=== PATIENT | male | born 1975 | race Caucasian/White ===

== ENCOUNTER 2016-11-05 09:45 | Emergency (ER) | payer SELFPAY | END 2016-11-05 10:30 | disposition home or self-care (01) | LOC: ED 09:45 | DX: H10.231 Serous conjunctivitis, except viral, right eye (principal) | CPT/HCPCS: 99283 ==

== ENCOUNTER 2017-03-29 07:19 | Emergency (ER) | payer OTHER ==
[~2017-03-29] VITALS: Ht 167.6 cm; Wt 108.0 kg
[2017-03-29 07:53] VITALS: BP 148/106
[2017-03-29] MEDS ORDERED: MAALOX/HYOSCYAMINE/LIDOCAINE 45 ML BTL ONE (07:58)
[2017-03-29] MEDS ORDERED: MAALOX/HYOSCYAMINE/LIDOCAINE 45 ML BTL PO ONE (08:00)
[2017-03-29 08:30] LABS: HEMATOCRIT 46.7 % (39.2-51.8); HEMOGLOBIN 15.7 g/dL (13.7-18.0); WHITE BLOOD COUNT 7.3 x10^3/uL (3.4-10)
[2017-03-29 08:37] LABS: ASPARTATE AMINO TRANSFERASE 143 U/L (15-37); BLOOD UREA NITROGEN 8 mg/dL (7-18)
== END 2017-03-30 09:36 | disposition home or self-care (01) ==
LOC: ED 07:40
DX: K29.20 Alcoholic gastritis without bleeding (principal); I10 Essential (primary) hypertension
CPT/HCPCS: 36415; 80053; 83690; 85025; 93005; 99285

== ENCOUNTER 2018-02-25 13:28 | Emergency (ER) | payer SELFPAY ==
[~2018-02-25] VITALS: Ht 167.6 cm; Wt 95.0 kg
[2018-02-25 13:41] VITALS: BP 143/101
[2018-02-25] MEDS ORDERED: PROPARACAINE OPHTH 0.5%, 15ML ONE (14:00)
[2018-02-25] MEDS ORDERED: FLUORESCEIN OPHTHALMIC 1 MG STRIP EACHEYE ONE (14:00)
[2018-02-25] MEDS ORDERED: PROPARACAINE OPHTH 0.5%, 15ML EACHEYE ONE (14:00)
== END 2018-02-25 15:40 | disposition home or self-care (01) ==
LOC: ED 15:25
DX: T15.01XA Foreign body in cornea, right eye, initial encounter (principal); X58.XXXA Exposure to other specified factors, initial encounter
CPT/HCPCS: 99283

== ENCOUNTER 2019-04-15 06:30 | Inpatient (IN) | payer OTHER ==
[~2019-04-15] VITALS: Ht 172.7 cm; Wt 90.7 kg
[2019-04-15] MEDS ORDERED: LORazepam 2 MG/ML, 1ML ONE (06:56)
[2019-04-15] MEDS ORDERED: NALOXONE 0.4 MG/ML, 1ML ONE (06:56)
--- NOTE | 2019-04-15 06:57 | NUR ---
PT. MOVED TO TRAUMA 3 AND ALL MONITORS PLACED. SEZIURE PRECAUTIONS IN PLACE.
--- NOTE | 2019-04-15 06:59 | NUR ---
PER DR. MICHAEL ADMIN NARCAN, IF NO CHANGE IN CONDITION THEN ADMIN ATIVAN. NO CHANGE AFTER NARCAN. RAINA SMITH GAVE REPORT TO RAINA ROCHA TO ASSUME CARE AT THIS TIME.
[2019-04-15 07:00] LABS: BASOPHILS # (AUTO) 0.08 x10^3/uL (0-0.1); BASOPHILS % (AUTO) 1 % (0-1); EOSINOPHILS # (AUTO) 0.01 x10^3/uL (0-0.4); EOSINOPHILS % (AUTO) 0 % (1-7); LYMPHOCYTES # (AUTO) 0.51 x10^3/uL (1-3.4); LYMPHOCYTES % (AUTO) 5 % (22-44); MD NO; MEAN CORPUSCULAR HEMOGLOBIN 31.2 pg (27.5-34.5); MEAN CORPUSCULAR HGB CONC 32.7 g/dL (33.2-36.2); MEAN CORPUSCULAR VOLUME 95.5 fL (81-97); MEAN PLATELET VOLUME 6.8 fL (7.4-10.4); MONOCYTES # (AUTO) 0.56 x10^3/uL (0.2-0.8); MONOCYTES % (AUTO) 6 % (2-9); NEUTROPHILS # (AUTO) 9.01 x10^3/uL (1.8-6.8); NEUTROPHILS % (AUTO) 89 % (42-75); PLATELET COUNT 218 x10^3/uL (130-400); RED BLOOD COUNT 4.24 x10^6/uL (4.38-5.82)
[2019-04-15] MEDS ORDERED: NALOXONE 0.4 MG/ML, 1ML IVPush PRN (07:00)
[2019-04-15] MEDS ORDERED: LORazepam 2 MG/ML, 1ML IVPush ONE (07:00)
--- NOTE | 2019-04-15 07:05 | NUR ---
REPORT RECEIVED, CARE ASSUMED. PT NON VERBAL. CHAMPION. NOT FULLY FOLLOWING COMMANDS, IE: SQUEEZE MY HANDS, PUSH WITH YOUR FEET. RN PLACED CHIOMA ARMS UP FOR PT, PT HELD IN AIR, NO DRIFT NOTED. PT WITH BLOOD AROUND LIPS, ST PER MONITOR. SEIZURE PADS IN PLACE. PT MEDICATED BY NIGHT RN ORDERED. PTS MOTHER AT BEDSIDE. WAITING FOR TEST RESULTS.
[2019-04-15 07:10] LABS: ALBUMIN 3.4 g/dL (3.4-5.0); ANION GAP 15 mmol/L (5-15); CALCIUM 7.8 mg/dL (8.5-10.1); CHLORIDE 106 mmol/L (98-107)
--- NOTE | 2019-04-15 07:11 | NUR ---
FULLY MONITORED: SVT, ERP AT BEDSIDE.
[2019-04-15 07:13] LABS: ALANINE AMINOTRANSFERASE 44 U/L (12-78); ALKALINE PHOSPHATASE 94 U/L (45-117); BILIRUBIN,TOTAL 0.4 mg/dL (0.2-1.0); TOTAL PROTEIN 8.2 g/dL (6.4-8.2)
--- NOTE | 2019-04-15 07:13 | NUR ---
SUCTION SET UP. SEIZURE PADS ON BED, AND SEIZURE PRECAUTIONS IN PLACE.
--- NOTE | 2019-04-15 07:13 | NUR ---
DR MICHAEL AT BEDSIDE.
[2019-04-15 07:14] LABS: SALICYLATE LEVEL < 1.7 mg/dL (2.8-20.0)
--- NOTE | 2019-04-15 07:26 | NUR ---
GILAG COMPLETED. PT TO CT VIA JASMYN
--- NOTE | 2019-04-15 07:33 | NUR ---
PT RETURN TO ROOM.
--- NOTE | 2019-04-15 07:36 | NUR ---
PT CHAMPION, PT SPEAKING TO MOTHER. PT FOLLOWING SOME COMANDS, IE: LIFT YOUR ARMS UP, STICK YOU TONGUE OUT. PT TREMULOUS. ST PER MONITOR. WAITING FOR TEST RESULTS.
--- NOTE | 2019-04-15 07:58 | NUR ---
DR MICHAEL AT BEDSIDE, SPEAKING WITH PTS MOTHER AND SISTER. PT CONT ST PER MONITOR. AUTO BP AND PULSE OX IN PLACE.
--- NOTE | 2019-04-15 08:26 | NUR ---
PT CONT TO CHAMPION, MOVES SELF ON GURNEY. SPEAKING AT TIMES, DIFICULT TO UNDERSTAND. MIMICS DIRECTION, IE: RAISE YOUR ARMS, STICK OUT YOUR HERRERA. CONT ST PER MONITO, AUTTO BP AND PULSE OX IN PLACE. FAMILY AT BEDSIDE. AWARE OF POC. WAITING FOR ADMIT ORDERS.
[2019-04-15 08:29] LABS: INTERNATIONAL NORMALIZED RATIO 0.97 (0.93-1.1); PROTHROMBIN TIME 10.2 Seconds (9.6-11.5)
[2019-04-15] MEDS ORDERED: DILTIAZEM 5 MG/ML, 5ML ONE (08:34)
--- NOTE | 2019-04-15 08:41 | NUR ---
DISCUSSED PT BP WITH DR. MICHAEL, ORDER RECEIVED. PT MEDICATED ORDERED. SUMAN REQUESTED FROM PHARMACY. FAMILY UPDATED ON POC. CONT TO MONITOR.
[2019-04-15] MEDS ORDERED: DILTIAZEM 5 MG/ML, 5ML IVPush ONE (09:00)
[2019-04-15] MEDS ORDERED: LEVETIRACETAM 500 MG in SODIUM CHLORIDE 0.9% 100 ML IV ONE (09:00)
--- NOTE | 2019-04-15 09:24 | NUR ---
PT LESS RESTLESS AFTER URINATING. PUPILS EQUAL BRISK 4MM, FOLLOWING COMMAND OF SQUEEZE MY FINGERS, HOLD YOUR ARMS OUT, PUSH DOWN WITH YOUR FEET. NO FOLLOWING STICK OUT YOUR TONGUE OR PULL YOUR TOES UP. PT CONT TO BE DIFFICULT TO UNDERSTAND. PICKS AT SHEET, MONITORING EQUIPMENT AT TIMES. ST PER MONITOR, AUTO BP AND PULSE OX IN PLACE. KEPPRA INFUSING WITHOUT REDNESS/SWELLING. FAMILY AT BEDSIDE. AWAITING FURTHER DISPOSITION.
[2019-04-15] MEDS ORDERED: ACETAMINOPHEN 650 MG SUPP ONE (09:51)
[2019-04-15] MEDS ORDERED: ACETAMINOPHEN 650 MG SUPP PR STA (09:51)
[2019-04-15 09:57] LABS: AMPHETAMINE SCREEN, URINE Negative (Negative); BARBITURATE SCREEN, URINE Negative (Negative); BENZODIAZEPINE SCREEN, URINE Positive (Negative); CANNABINOID SCREEN, URINE Negative (Negative); COCAINE SCREEN, URINE Negative (Negative); METHADONE SCREEN, URINE Negative (Negative); OPIATE SCREEN, URINE Negative (Negative)
--- NOTE | 2019-04-15 10:07 | NUR ---
ENERGY AND CONSERVATION TECHNICIAN AT BEDSIDE TO DRAW LABS. REPORT TO BASIA PARIS. POC DISCUSSED.
--- NOTE | 2019-04-15 10:15 | NUR ---
BLOOD CULTURES X2 AND LACTIC ACID DRAWN.
[2019-04-15] MEDS ORDERED: ACETAMINOPHEN 650 MG SUPP PR ONE (10:30)
[2019-04-15] MEDS ORDERED: ZIPRASIDONE 20 MG INJ IM ONE ×2 (11:42→12:00)
[2019-04-15] MEDS ORDERED: ENALAPRILAT 1.25 MG/ML, 2ML IVPush PRN (12:00)
[2019-04-15] MEDS ORDERED: ONDANSETRON 2MG/ML, 2ML IVPush PRN (12:00)
[2019-04-15] MEDS ORDERED: PHENOBARBITAL SODIUM 690 MG in SODIUM CHLORIDE 0.9% 50 ML IV ONE (12:00)
[2019-04-15] MEDS ORDERED: DEXMEDETOMIDINE 200 MCG in SODIUM CHLORIDE 0.9% 48 ML IV PRN (12:00)
[2019-04-15] MEDS ORDERED: LABETALOL 5 MG/ML SYR. (IV ONLY) IVPush PRN (12:00)
[2019-04-15] MEDS ORDERED: ACETAMINOPHEN 325 MG TABLET PO PRN (12:00)
[2019-04-15] MEDS ORDERED: ONDANSETRON ODT 4 MG PO PRN (12:00)
[2019-04-15] MEDS ORDERED: BISACODYL 10 MG SUPP PR PRN (12:00)
[2019-04-15] MEDS ORDERED: POLYETHYLENE GLYCOL 17 GM PACKET PO PRN (12:00)
[2019-04-15] MEDS: SODIUM CHLORIDE 0.9% 1,000 ML IV SCH ×2 (12:28→21:57)
[2019-04-15] MEDS ORDERED: SODIUM CHLORIDE 0.9% 1,000ML IVBOLUS ONE (12:30)
[2019-04-15] MEDS: AMPICILLIN/SULBACTAM 3 GM in SODIUM CHLORIDE 0.9% 100 ML IV SCH ×3 (12:50→23:07)
[2019-04-15] MEDS: POTASSIUM CHLORIDE 20 MEQ, MAGNESIUM SULFATE 1 GM, THIAMINE 200 MG, FOLIC ACID 1 MG, MV... IV SCH (12:58)
[2019-04-15 13:37] VITALS: BP 146/88
[2019-04-15 13:39] LABS: MICROSCOPIC NOT IND
[2019-04-15 13:44] VITALS: BP 137/88
[2019-04-15 13:46] LABS: CULTURE INDICATED? NO
[2019-04-15] MEDS: DEXMEDETOMIDINE 1,000 MCG in SODIUM CHLORIDE 0.9% 240 ML IV PRN (14:01)
[2019-04-15] MEDS ORDERED: SODIUM CHLORIDE 0.9% IV ONE (15:00)
[2019-04-15] MEDS ORDERED: PHENOBARBITAL SODIUM IV ONE (15:00)
[2019-04-15] MEDS: DEXAMETHASONE 4 MG/ML, 1ML IVPush SCH ×2 (17:28→23:07)
[2019-04-15] MEDS: LEVETIRACETAM 500 MG in SODIUM CHLORIDE 0.9% 100 ML IV SCH (20:53)
[2019-04-15] MEDS: PHENOBARBITAL SODIUM 65 MG/ML, 1ML IM SCH (21:57)
[2019-04-16 04:00] VITALS: BP 117/73
[2019-04-16] MEDS ORDERED: OMNIPAQUE 350 MG/ML, 100ML BOTTLE ONE (04:32)
[2019-04-16] MEDS: DEXMEDETOMIDINE 1,000 MCG in SODIUM CHLORIDE 0.9% 240 ML IV PRN (05:09)
[2019-04-16] MEDS: DEXAMETHASONE 4 MG/ML, 1ML IVPush SCH ×4 (05:09→23:33)
[2019-04-16] MEDS: SODIUM CHLORIDE 0.9% 1,000 ML IV SCH (05:10)
[2019-04-16] MEDS: AMPICILLIN/SULBACTAM 3 GM in SODIUM CHLORIDE 0.9% 100 ML IV SCH ×3 (06:04→18:34)
[2019-04-16 06:43] LABS: BASOPHILS # (AUTO) 0.01 x10^3/uL (0-0.1); BASOPHILS % (AUTO) 0 % (0-1); EOSINOPHILS % (AUTO) 0 % (1-7); LYMPHOCYTES # (AUTO) 0.39 x10^3/uL (1-3.4); LYMPHOCYTES % (AUTO) 4 % (22-44); MD NO; MEAN CORPUSCULAR HEMOGLOBIN 31.7 pg (27.5-34.5); MEAN CORPUSCULAR HGB CONC 32.8 g/dL (33.2-36.2); MEAN CORPUSCULAR VOLUME 96.8 fL (81-97); MEAN PLATELET VOLUME 7.7 fL (7.4-10.4); MONOCYTES # (AUTO) 0.45 x10^3/uL (0.2-0.8); MONOCYTES % (AUTO) 4 % (2-9); NEUTROPHILS # (AUTO) 9.52 x10^3/uL (1.8-6.8); NEUTROPHILS % (AUTO) 92 % (42-75); PLATELET COUNT 178 x10^3/uL (130-400); RED BLOOD COUNT 4.08 x10^6/uL (4.38-5.82); RED CELL DISTRIBUTION WIDTH 14.2 % (9.4-14.8)
[2019-04-16 06:57] LABS: CALCIUM 7.6 mg/dL (8.5-10.1); CHLORIDE 104 mmol/L (98-107)
[2019-04-16 07:03] LABS: ALANINE AMINOTRANSFERASE 35 U/L (12-78); ALBUMIN 2.9 g/dL (3.4-5.0); ALKALINE PHOSPHATASE 72 U/L (45-117); ANION GAP 8 mmol/L (5-15); BILIRUBIN,TOTAL 0.8 mg/dL (0.2-1.0); TOTAL PROTEIN 7.6 g/dL (6.4-8.2)
[2019-04-16] MEDS: LEVETIRACETAM 500 MG in SODIUM CHLORIDE 0.9% 100 ML IV SCH ×2 (08:45→22:29)
[2019-04-16] MEDS: PHENOBARBITAL SODIUM 65 MG/ML, 1ML IM SCH (08:46)
[2019-04-16] MEDS ORDERED: SENNA/DOCUSATE TABLET PO SCH (09:00)
[2019-04-16] MEDS: POTASSIUM CHLORIDE 20 MEQ, MAGNESIUM SULFATE 1 GM, THIAMINE 200 MG, FOLIC ACID 1 MG, MV... IV SCH (14:03)
[2019-04-16 18:12] VITALS: BP 149/93
[2019-04-16 19:29] VITALS: BP 137/86
[2019-04-16] MEDS: PHENOBARBITAL 20 MG/5 ML ORAL SOL PO SCH (22:32)
[2019-04-17] VITALS (9 sets, daily range): BP systolic 129–162; BP diastolic 78–111
[2019-04-17] MEDS: AMPICILLIN/SULBACTAM 3 GM in SODIUM CHLORIDE 0.9% 100 ML IV SCH ×5 (00:29→23:53)
[2019-04-17] MEDS: DEXAMETHASONE 4 MG/ML, 1ML IVPush SCH ×4 (05:45→23:53)
[2019-04-17] MEDS ORDERED: LORazepam 0.5MG TABLET PO PRN (07:30)
[2019-04-17] MEDS ORDERED: LORazepam 2 MG/ML, 1ML IV PRN ×5 (07:30)
[2019-04-17] MEDS ORDERED: LORazepam 1MG TABLET PO PRN ×4 (07:30)
[2019-04-17] MEDS: FOLIC ACID 1 MG TABLET PO SCH ×2 (07:51→09:00)
[2019-04-17] MEDS: THIAMINE 100 MG/ML, 2ML IM SCH ×2 (07:52→09:00)
[2019-04-17] MEDS: LEVETIRACETAM 500 MG in SODIUM CHLORIDE 0.9% 100 ML IV SCH ×2 (07:53→21:13)
[2019-04-17] MEDS: PHENOBARBITAL 20 MG/5 ML ORAL SOL PO SCH (11:04)
[2019-04-17] MEDS: CARVEDILOL 12.5 MG TABLET PO SCH ×2 (11:05→17:26)
[2019-04-17] MEDS: AMLODIPINE 5 MG TABLET PO SCH ×2 (11:05→21:13)
[2019-04-17] MEDS: LISINOPRIL 20 MG TABLET PO SCH (13:42)
[2019-04-17] MEDS: POTASSIUM CHLORIDE 20 MEQ, MAGNESIUM SULFATE 1 GM, THIAMINE 200 MG, FOLIC ACID 1 MG, MV... IV SCH (13:42)
[2019-04-17] MEDS ORDERED: LABETALOL 5 MG/ML SYR. (IV ONLY) IVPush PRN (14:00)
[2019-04-17] MEDS ORDERED: CARVEDILOL 12.5 MG TABLET PO SCH (18:00)
[2019-04-18] VITALS (9 sets, daily range): BP systolic 125–148; BP diastolic 72–98
[2019-04-18 04:57] LABS: BASOPHILS # (AUTO) 0.01 x10^3/uL (0-0.1); BASOPHILS % (AUTO) 0 % (0-1); EOSINOPHILS # (AUTO) 0.01 x10^3/uL (0-0.4); EOSINOPHILS % (AUTO) 0 % (1-7); LYMPHOCYTES # (AUTO) 0.62 x10^3/uL (1-3.4); LYMPHOCYTES % (AUTO) 5 % (22-44); MD NO; MEAN CORPUSCULAR HEMOGLOBIN 31.6 pg (27.5-34.5); MEAN CORPUSCULAR HGB CONC 32.6 g/dL (33.2-36.2); MEAN CORPUSCULAR VOLUME 96.9 fL (81-97); MEAN PLATELET VOLUME 8.1 fL (7.4-10.4); MONOCYTES # (AUTO) 1.14 x10^3/uL (0.2-0.8); MONOCYTES % (AUTO) 9 % (2-9); NEUTROPHILS % (AUTO) 86 % (42-75); PLATELET COUNT 255 x10^3/uL (130-400); RED BLOOD COUNT 4.17 x10^6/uL (4.38-5.82)
[2019-04-18 05:01] LABS: CHLORIDE 106 mmol/L (98-107)
[2019-04-18 05:12] LABS: ALANINE AMINOTRANSFERASE 35 U/L (12-78); ALBUMIN 2.8 g/dL (3.4-5.0); ALKALINE PHOSPHATASE 65 U/L (45-117); ANION GAP 6 mmol/L (5-15); BILIRUBIN,TOTAL 0.6 mg/dL (0.2-1.0); CREATININE 0.49 mg/dL (0.7-1.3); TOTAL PROTEIN 7.7 g/dL (6.4-8.2)
[2019-04-18] MEDS: AMPICILLIN/SULBACTAM 3 GM in SODIUM CHLORIDE 0.9% 100 ML IV SCH (06:19)
[2019-04-18] MEDS: DEXAMETHASONE 4 MG/ML, 1ML IVPush SCH ×2 (06:19→17:19)
[2019-04-18] MEDS: CARVEDILOL 12.5 MG TABLET PO SCH ×2 (06:19→17:20)
[2019-04-18] MEDS: LEVETIRACETAM 500 MG in SODIUM CHLORIDE 0.9% 100 ML IV SCH ×2 (07:54→20:15)
[2019-04-18] MEDS: FOLIC ACID 1 MG TABLET PO SCH (07:54)
[2019-04-18] MEDS: AMLODIPINE 5 MG TABLET PO SCH ×2 (07:55→20:15)
[2019-04-18] MEDS: LISINOPRIL 20 MG TABLET PO SCH (07:55)
[2019-04-18] MEDS: THIAMINE 100MG TABLET PO SCH (07:55)
[2019-04-18] MEDS ORDERED: DEXAMETHASONE 4 MG/ML, 1ML IVPush SCH (12:00)
[2019-04-18] MEDS: POTASSIUM CHLORIDE 20 MEQ, MAGNESIUM SULFATE 1 GM, THIAMINE 200 MG, FOLIC ACID 1 MG, MV... IV SCH (13:37)
[2019-04-18] MEDS ORDERED: FOLI-17 PO (16:16)
[2019-04-18] MEDS ORDERED: LISI-170 PO (16:16)
[2019-04-18] MEDS ORDERED: THIA100T67 PO (16:16)
[2019-04-18] MEDS ORDERED: CARV12.52 PO (16:16)
[2019-04-18] MEDS ORDERED: OMEP-110 PO (16:16)
[2019-04-18] MEDS ORDERED: AMLO-150 PO (16:16)
[2019-04-18] MEDS ORDERED: LEVE500T53 PO (16:17)
[2019-04-18] MEDS ORDERED: AMOX1TAB12 PO (16:17)
[2019-04-18] MEDS ORDERED: METH4TAB2 PO (16:19)
[2019-04-18] MEDS: AMOXICILLIN/CLAV 875-125MG TABLET PO SCH (20:15)
[2019-04-18] MEDS: PHENOBARBITAL 20 MG/5 ML ORAL SOL PO SCH (22:11)
[2019-04-19 04:00] VITALS: BP 128/80
[2019-04-19] MEDS: DEXAMETHASONE 4 MG/ML, 1ML IVPush SCH (05:14)
[2019-04-19] MEDS: CARVEDILOL 12.5 MG TABLET PO SCH (05:14)
[2019-04-19] MEDS ORDERED: OMEPRAZOLE 20 MG CAPSULE.DR PO SCH (06:00)
[2019-04-19 07:59] VITALS: BP 132/89
[2019-04-19 08:55] VITALS: BP 128/84
[2019-04-19 08:57] VITALS: BP 131/88
[2019-04-19] MEDS: LEVETIRACETAM 500 MG in SODIUM CHLORIDE 0.9% 100 ML IV SCH (09:00)
[2019-04-19] MEDS: THIAMINE 100MG TABLET PO SCH (09:00)
[2019-04-19] MEDS: AMOXICILLIN/CLAV 875-125MG TABLET PO SCH (11:13)
[2019-04-19] MEDS: FOLIC ACID 1 MG TABLET PO SCH (11:13)
[2019-04-19] MEDS: LISINOPRIL 20 MG TABLET PO SCH (11:13)
[2019-04-19] MEDS: AMLODIPINE 5 MG TABLET PO SCH (11:13)
[2019-04-19] MEDS: PHENOBARBITAL 20 MG/5 ML ORAL SOL PO SCH (11:18)
[2019-04-19] MEDS ORDERED: FLU VAC QS 19-20(4YR UP)CEL/PF 0.5 ML IM-VACC ONE (11:30)
[2019-04-20] MEDS ORDERED: PHENOBARBITAL 20 MG/5 ML ORAL SOL PO SCH (22:00)
[2019-04-21] MEDS ORDERED: PHENOBARBITAL 20 MG/5 ML ORAL SOL PO SCH (22:00)
== END 2019-04-19 13:27 | disposition home or self-care (01) | DRG 85 ==
LOC: ED 06:41 → EDIP 09:20 → CCU 10:45 → 4WST 04-16 18:08
PROVIDERS: ADMIT Internal Medicine; ATTEND Internal Medicine
PROC: 0T9B70Z Drainage of Bladder with Drainage Device, Via Natural or Artificial Opening (ICD-10-PCS; principal; 2019-04-15)
DX: S06.5X0A Traumatic subdural hemorrhage without loss of consciousness, initial encounter (principal); G92 Toxic encephalopathy; J69.0 Pneumonitis due to inhalation of food and vomit; F10.239 Alcohol dependence with withdrawal, unspecified; G40.89 Other seizures; Y90.9 Presence of alcohol in blood, level not specified; I48.91 Unspecified atrial fibrillation; R09.02 Hypoxemia; X58.XXXA Exposure to other specified factors, initial encounter; Y93.89 Activity, other specified; Y92.89 Other specified places as the place of occurrence of the external cause; Y99.8 Other external cause status; Z79.899 Other long term (current) drug therapy
CPT/HCPCS: 36415; 70450; 70496; 71045; 80053; 80307; 81003; 82140; 83605; 83690; 83735; 84100; 85025; 85610; 85730; 87040; 87081; 90674; 93005; 96365; 96375; G0378; J0295; J1100; J1953; J2310; J2560; J3411; J3475; J3480; J3486; Q9967; J2060; J7030; J7050

== ENCOUNTER 2019-05-01 10:54 | Inpatient (IN) | payer MEDICAID, OTHER ==
[~2019-05-01] VITALS: Ht 175.3 cm; Wt 88.8 kg
[~2019-05-01 10:54] MED LIST: AMLO-150 PO; AMOX1TAB12 PO; CARV12.52 PO; FOLI-17 PO; LEVE500T53 PO; LISI-170 PO; METH4TAB2 PO; OMEP-110 PO; THIA100T67 PO
[2019-05-01] MEDS ORDERED: LORazepam 2 MG/ML, 1ML ONE ×2 (10:57→12:46)
[2019-05-01] MEDS ORDERED: SODIUM CHLORIDE 0.9% 1,000ML IVBOLUS ONE (11:00)
[2019-05-01] MEDS ORDERED: LORazepam 2 MG/ML, 1ML IVPush ONE ×2 (11:00→12:30)
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
[2019-05-01] MEDS ORDERED: PLEASE ENTER HEIGHT AND WEIGHT MC SCH (11:30)
[2019-05-01 11:33] LABS: BASOPHILS # (AUTO) 0.07 x10^3/uL (0-0.1); BASOPHILS % (AUTO) 1 % (0-1); EOSINOPHILS # (AUTO) 0.14 x10^3/uL (0-0.4); EOSINOPHILS % (AUTO) 1 % (1-7); LYMPHOCYTES # (AUTO) 1.17 x10^3/uL (1-3.4); LYMPHOCYTES % (AUTO) 11 % (22-44); MD NO; MEAN CORPUSCULAR HEMOGLOBIN 31.9 pg (27.5-34.5); MEAN CORPUSCULAR HGB CONC 32.9 g/dL (33.2-36.2); MEAN PLATELET VOLUME 6.8 fL (7.4-10.4); MONOCYTES % (AUTO) 6 % (2-9); NEUTROPHILS # (AUTO) 8.93 x10^3/uL (1.8-6.8); NEUTROPHILS % (AUTO) 81 % (42-75); PLATELET COUNT 557 x10^3/uL (130-400); RED CELL DISTRIBUTION WIDTH 13.4 % (9.4-14.8)
--- NOTE | 2019-05-01 11:43 | NUR ---
Pt returned from CT in NAD, pt LOC & mental staus improved at this time.
[2019-05-01 11:49] LABS: ANION GAP 16 mmol/L (5-15); CALCIUM 8.5 mg/dL (8.5-10.1); CHLORIDE 104 mmol/L (98-107)
[2019-05-01 11:54] LABS: ALANINE AMINOTRANSFERASE 21 U/L (12-78); ALKALINE PHOSPHATASE 87 U/L (45-117); BILIRUBIN,TOTAL 0.5 mg/dL (0.2-1.0); CREATININE 1.18 mg/dL (0.7-1.3); TOTAL PROTEIN 7.6 g/dL (6.4-8.2)
--- NOTE | 2019-05-01 12:00 | NUR ---
Per MD Law, UDS not required for admit order. Pt is unabel to urinate at this time.
--- NOTE | 2019-05-01 12:33 | NUR ---
consulting neurosurgery at this time.
[2019-05-01] MEDS ORDERED: LEVETIRACETAM 1,000 MG in SODIUM CHLORIDE 0.9% 100 ML IV ONE (13:00)
--- NOTE | 2019-05-01 13:22 | NUR ---
MD Evangelista of neurosurgery has been at bedside to assess pt, awaiting CCU bed for admission
--- NOTE | 2019-05-01 13:51 | NUR ---
Pt's family has departed, emergency contact info accurate in chart. Pt asleep in bed, NAD, awaiting ICU bed. WCTM.
[2019-05-01] MEDS ORDERED: LORazepam 2 MG/ML, 1ML IVPush PRN (15:00)
[2019-05-01] MEDS ORDERED: LABETALOL 5MG/ML, 20ML IVPush PRN (15:00)
[2019-05-01] MEDS ORDERED: ONDANSETRON 2MG/ML, 2ML IVPush PRN (15:00)
[2019-05-01] MEDS ORDERED: LEVETIRACETAM 1,000 MG in SODIUM CHLORIDE 0.9% 100 ML IV SCH (15:00)
[2019-05-01] MEDS ORDERED: THIAMINE 200 MG, MVI ADULT 10 ML, FOLIC ACID 1 MG in D5%-0.9% NACL 1,000 ML IV SCH (15:00)
[2019-05-01] MEDS ORDERED: POLYETHYLENE GLYCOL 17 GM PACKET PO PRN (15:00)
[2019-05-01] MEDS ORDERED: BISACODYL 10 MG SUPP PR PRN (15:00)
[2019-05-01] MEDS ORDERED: ENALAPRILAT 1.25 MG/ML, 2ML IVPush PRN (15:00)
[2019-05-01 15:40] LABS: AMPHETAMINE SCREEN, URINE Positive (Negative); BARBITURATE SCREEN, URINE Positive (Negative); BENZODIAZEPINE SCREEN, URINE Negative (Negative); CANNABINOID SCREEN, URINE Negative (Negative); COCAINE SCREEN, URINE Negative (Negative); METHADONE SCREEN, URINE Negative (Negative); OPIATE SCREEN, URINE Negative (Negative)
[2019-05-02 04:00] VITALS: BP 138/87
[2019-05-02 04:40] LABS: BASOPHILS # (AUTO) 0.29 x10^3/uL (0-0.1); BASOPHILS % (AUTO) 3 % (0-1); EOSINOPHILS # (AUTO) 0.13 x10^3/uL (0-0.4); EOSINOPHILS % (AUTO) 1 % (1-7); LYMPHOCYTES # (AUTO) 1.33 x10^3/uL (1-3.4); LYMPHOCYTES % (AUTO) 13 % (22-44); MD NO; MEAN CORPUSCULAR HEMOGLOBIN 31.8 pg (27.5-34.5); MEAN CORPUSCULAR HGB CONC 33.2 g/dL (33.2-36.2); MEAN CORPUSCULAR VOLUME 95.7 fL (81-97); MONOCYTES # (AUTO) 0.76 x10^3/uL (0.2-0.8); MONOCYTES % (AUTO) 8 % (2-9); NEUTROPHILS # (AUTO) 7.65 x10^3/uL (1.8-6.8); NEUTROPHILS % (AUTO) 75 % (42-75); PLATELET COUNT 468 x10^3/uL (130-400); RED BLOOD COUNT 3.92 x10^6/uL (4.38-5.82); RED CELL DISTRIBUTION WIDTH 13.5 % (9.4-14.8)
[2019-05-02 04:50] LABS: CHLORIDE 105 mmol/L (98-107)
[2019-05-02 04:56] LABS: ALANINE AMINOTRANSFERASE 18 U/L (12-78); ALBUMIN 2.7 g/dL (3.4-5.0); ALKALINE PHOSPHATASE 75 U/L (45-117); ANION GAP 7 mmol/L (5-15); BILIRUBIN,TOTAL 0.7 mg/dL (0.2-1.0); CALCIUM 8.2 mg/dL (8.5-10.1); TOTAL PROTEIN 7.3 g/dL (6.4-8.2)
[2019-05-02] MEDS ORDERED: MAGNESIUM SULFATE PMX 2GM/50ML 50 ML IV ONE (07:00)
[2019-05-02] MEDS: SENNA/DOCUSATE TABLET PO SCH (07:52)
[2019-05-02] MEDS: CHLORDIAZEPOXIDE 25 MG CAPSULE PO SCH ×3 (07:52→20:04)
[2019-05-02] MEDS: LORazepam 2 MG/ML, 1ML IVPush PRN (12:09)
[2019-05-02] MEDS: SODIUM CHLORIDE 1 GM TABLET PO SCH ×3 (12:09→20:04)
[2019-05-02] MEDS ORDERED: THIAMINE 200 MG, MVI ADULT 10 ML, FOLIC ACID 1 MG in D5%-0.9% NACL 1,000 ML IV SCH (15:00)
[2019-05-02] MEDS: LEVETIRACETAM 500 MG TABLET PO SCH (20:04)
[2019-05-03] MEDS: LORazepam 2 MG/ML, 1ML IVPush PRN ×2 (00:06→06:15)
[2019-05-03 04:45] LABS: ANION GAP 6 mmol/L (5-15); CALCIUM 8.1 mg/dL (8.5-10.1); CHLORIDE 107 mmol/L (98-107)
[2019-05-03] MEDS ORDERED: POTASSIUM CHLORIDE 20 MEQ TAB.ER.PRT PO ONE (07:30)
[2019-05-03] MEDS: SODIUM CHLORIDE 1 GM TABLET PO SCH ×3 (09:15→20:54)
[2019-05-03] MEDS: LEVETIRACETAM 500 MG TABLET PO SCH ×2 (09:16→20:53)
[2019-05-03] MEDS: SENNA/DOCUSATE TABLET PO SCH (09:16)
[2019-05-03] MEDS ORDERED: CHLORDIAZEPOXIDE 10 MG CAPSULE ONE (12:09)
[2019-05-03] MEDS ORDERED: CHLORDIAZEPOXIDE 5 MG CAPSULE ONE (12:10)
[2019-05-03] MEDS: THIAMINE 200 MG, MVI ADULT 10 ML, FOLIC ACID 1 MG in D5%-0.9% NACL 1,000 ML IV SCH ×2 (13:24→15:37)
[2019-05-03] MEDS: CHLORDIAZEPOXIDE 10 MG CAPSULE PO SCH ×2 (14:38→20:53)
[2019-05-03] MEDS: CHLORDIAZEPOXIDE 5 MG CAPSULE PO SCH ×2 (15:20→20:53)
[2019-05-03] MEDS: ACETAMINOPHEN 325 MG TABLET PO PRN (20:53)
[2019-05-04] MEDS: ACETAMINOPHEN 325 MG TABLET PO PRN ×2 (04:30→15:28)
[2019-05-04 05:04] LABS: ANION GAP 5 mmol/L (5-15); CALCIUM 8.6 mg/dL (8.5-10.1); CHLORIDE 106 mmol/L (98-107); CREATININE 0.62 mg/dL (0.7-1.3)
[2019-05-04] MEDS: SODIUM CHLORIDE 1 GM TABLET PO SCH ×3 (08:31→20:21)
[2019-05-04] MEDS: CHLORDIAZEPOXIDE 5 MG CAPSULE PO SCH ×3 (08:31→20:22)
[2019-05-04] MEDS: CHLORDIAZEPOXIDE 10 MG CAPSULE PO SCH ×3 (08:31→20:21)
[2019-05-04] MEDS: LEVETIRACETAM 500 MG TABLET PO SCH ×2 (08:31→20:21)
[2019-05-04] MEDS: SENNA/DOCUSATE TABLET PO SCH (08:34)
[2019-05-04] MEDS: OXYcodone IR 5MG TABLET PO PRN ×2 (08:56→14:11)
[2019-05-04] MEDS: THIAMINE 200 MG, MVI ADULT 10 ML, FOLIC ACID 1 MG in D5%-0.9% NACL 1,000 ML IV SCH (11:27)
[2019-05-04 17:05] VITALS: BP 128/96
[2019-05-04 19:54] VITALS: BP 123/78
[2019-05-05 03:45] VITALS: BP 139/90
[2019-05-05] MEDS: OXYcodone IR 5MG TABLET PO PRN ×2 (04:58→09:21)
[2019-05-05 05:55] LABS: ANION GAP 6 mmol/L (5-15); CALCIUM 8.9 mg/dL (8.5-10.1); CHLORIDE 106 mmol/L (98-107)
[2019-05-05 05:56] LABS: CREATININE 0.63 mg/dL (0.7-1.3)
[2019-05-05 07:56] VITALS: BP 122/83
[2019-05-05] MEDS: SENNA/DOCUSATE TABLET PO SCH (08:19)
[2019-05-05] MEDS: CHLORDIAZEPOXIDE 5 MG CAPSULE PO SCH ×3 (08:19→20:18)
[2019-05-05] MEDS: LEVETIRACETAM 500 MG TABLET PO SCH ×2 (08:19→20:18)
[2019-05-05] MEDS: CHLORDIAZEPOXIDE 10 MG CAPSULE PO SCH ×3 (08:19→20:18)
[2019-05-05] MEDS: SODIUM CHLORIDE 1 GM TABLET PO SCH ×3 (09:21→20:18)
[2019-05-05] MEDS: THIAMINE 200 MG, MVI ADULT 10 ML, FOLIC ACID 1 MG in D5%-0.9% NACL 1,000 ML IV SCH (09:22)
[2019-05-05 11:09] VITALS: BP 127/86
[2019-05-05] MEDS: ACETAMINOPHEN 325 MG TABLET PO PRN ×2 (11:28→20:42)
[2019-05-05 14:11] VITALS: BP 108/68
[2019-05-05 18:40] VITALS: BP 132/63
[2019-05-06 00:19] VITALS: BP 116/78
[2019-05-06 07:01] LABS: ANION GAP 6 mmol/L (5-15); CHLORIDE 106 mmol/L (98-107); CREATININE 0.56 mg/dL (0.7-1.3)
[2019-05-06 07:13] VITALS: BP 145/88
[2019-05-06] MEDS: SODIUM CHLORIDE 1 GM TABLET PO SCH ×3 (08:14→20:34)
[2019-05-06] MEDS: LEVETIRACETAM 500 MG TABLET PO SCH ×2 (08:14→20:34)
[2019-05-06] MEDS: CHLORDIAZEPOXIDE 5 MG CAPSULE PO SCH ×3 (08:14→20:34)
[2019-05-06] MEDS: SENNA/DOCUSATE TABLET PO SCH (08:14)
[2019-05-06] MEDS: CHLORDIAZEPOXIDE 10 MG CAPSULE PO SCH ×3 (08:14→20:34)
[2019-05-06] MEDS: THIAMINE 200 MG, MVI ADULT 10 ML, FOLIC ACID 1 MG in D5%-0.9% NACL 1,000 ML IV SCH (11:12)
[2019-05-06 13:00] VITALS: BP 129/84
[2019-05-06 18:52] VITALS: BP 138/85
[2019-05-07 01:36] VITALS: BP 117/78
[2019-05-07 07:00] VITALS: BP 127/84
[2019-05-07] MEDS: CHLORDIAZEPOXIDE 5 MG CAPSULE PO SCH (10:12)
[2019-05-07] MEDS: SODIUM CHLORIDE 1 GM TABLET PO SCH (10:12)
[2019-05-07] MEDS: LEVETIRACETAM 500 MG TABLET PO SCH (10:12)
[2019-05-07] MEDS: CHLORDIAZEPOXIDE 10 MG CAPSULE PO SCH (10:12)
== END 2019-05-07 10:44 | disposition home or self-care (01) | DRG 65 ==
LOC: ED 12:13 → EDIP 12:58 → CCU 14:21 → 5SO 05-04 17:06 → 4WST 05-05 10:39 → DCLOUNGE 05-07 10:18
PROVIDERS: ADMIT Internal Medicine; ATTEND Internal Medicine
DX: I62.01 Nontraumatic acute subdural hemorrhage (principal); E87.1 Hypo-osmolality and hyponatremia; F10.239 Alcohol dependence with withdrawal, unspecified; D64.9 Anemia, unspecified; I62.03 Nontraumatic chronic subdural hemorrhage; D72.828 Other elevated white blood cell count; F15.10 Other stimulant abuse, uncomplicated; I10 Essential (primary) hypertension; R56.9 Unspecified convulsions; Z91.14 Patient's other noncompliance with medication regimen
CPT/HCPCS: 36415; 96361; 96374; 99291; J7042; 70450; 80048; 80053; 80307; 83735; 84100; 85025; 87081; 93005; G0378; J1953; J2405; J3411; J2060; J3475; J7030

== ENCOUNTER 2019-05-23 19:17 | Emergency (ER) | payer MEDICAID ==
[~2019-05-23] VITALS: Ht 167.6 cm; Wt 95.5 kg
[2019-05-23] MEDS ORDERED: LEVE500T8 PO (19:44)
--- NOTE | 2019-05-23 20:10 | NUR ---
PT DOZING IN RT LATERAL POSITION ON BED, C-COLLAR REMAINS IN PLACE, RESP EVEN & UNLABORED.
--- NOTE | 2019-05-23 20:30 | NUR ---
C-COLLAR REMOVED PER DR RIVAS
--- NOTE | 2019-05-23 20:35 | NUR ---
PT VOIDED ONTO FLOOR. DRY LINENS, WARM BLANKET & URINAL PROVIDED TO PT. SIDE RAIL UP X2, CALL LIGHT W/IN REACH.
--- NOTE | 2019-05-23 21:41 | NUR ---
PT LYING QUIETLY ON GURNEY; NOTIFIED OF PENDING DC. PT INDICATES HE'S NOT READY TO GO.
--- NOTE | 2019-05-23 21:55 | NUR ---
AMBULATED PT IN MATA; GAIT UNSTEADY. PT ACCOMPANIED TO ED ROOM 18. PT ENDORSED TO RAINA STOCKTON.
--- NOTE | 2019-05-23 21:57 | NUR ---
Report received and care assumed. Pt to be d/c home when able to walk safely. Attempted to ambulate--pt able to ambulate but is unsteady at this time. Pt moved to rm 18. Pt answering questions appropriately, moves all extremities. No needs expressed. Bed rails up. Call light in reach. Pt agrees to call for assist--aware of fall risk. Will reattempt to ambulate when more sober.
--- NOTE | 2019-05-23 23:10 | NUR ---
Pt sleeping with resp even and unlabored. Repositioning self in bed. VSS. Call light in reach.
--- NOTE | 2019-05-24 00:39 | NUR ---
Pt up to BR with steady gait. Tolerating PO fluids. Pupils ELAINE @ 4. Dedicated Truck Driver equal. Pt complains of mild dizziness--otherwise denies pain, numbness, tingling. Pt is A&O to person, place, and time. Answering questions appropriately. Pt will attempt to call sister and/or parents for ride.
[2019-05-24 00:40] VITALS: BP 116/80
--- NOTE | 2019-05-24 01:00 | NUR ---
Per pt's request, called and spoke with Barbara, pt's sister. She states she is on her way and will take pt to his parent's. Pt continues ambulating with steady gait to d/c desk. Pt will wait in lobby for sister to p/u.
== END 2019-05-24 01:09 | disposition home or self-care (01) ==
LOC: ED 21:47
DX: S00.83XA Contusion of other part of head, initial encounter (principal); F10.220 Alcohol dependence with intoxication, uncomplicated; I10 Essential (primary) hypertension; Y90.0 Blood alcohol level of less than 20 mg/100 ml; W18.30XA Fall on same level, unspecified, initial encounter; Y93.89 Activity, other specified; Y92.811 Bus as the place of occurrence of the external cause; Y99.8 Other external cause status
CPT/HCPCS: 70450; 70486; 72125; 99284

== ENCOUNTER 2019-06-30 08:21 | Emergency (ER) | payer MEDICAID ==
[~2019-06-30] VITALS: Ht 167.6 cm; Wt 90.9 kg
[~2019-06-30 08:21] MED LIST changes: +LEVE500T8 PO
[2019-06-30] MEDS ORDERED: LORazepam 2 MG/ML, 1ML ONE (08:37)
[2019-06-30 08:58] LABS: BASOPHILS # (AUTO) 0.15 x10^3/uL (0-0.1); BASOPHILS % (AUTO) 3 % (0-1); EOSINOPHILS # (AUTO) 0.08 x10^3/uL (0-0.4); EOSINOPHILS % (AUTO) 2 % (1-7); LYMPHOCYTES # (AUTO) 0.68 x10^3/uL (1-3.4); LYMPHOCYTES % (AUTO) 15 % (22-44); MD NO; MEAN CORPUSCULAR HEMOGLOBIN 31.2 pg (27.5-34.5); MEAN CORPUSCULAR HGB CONC 33.5 g/dL (33.2-36.2); MEAN CORPUSCULAR VOLUME 93.2 fL (81-97); MEAN PLATELET VOLUME 7.4 fL (7.4-10.4); MONOCYTES # (AUTO) 0.58 x10^3/uL (0.2-0.8); MONOCYTES % (AUTO) 13 % (2-9); NEUTROPHILS # (AUTO) 3.08 x10^3/uL (1.8-6.8); NEUTROPHILS % (AUTO) 68 % (42-75); PLATELET COUNT 155 x10^3/uL (130-400); RED BLOOD COUNT 4.23 x10^6/uL (4.38-5.82); RED CELL DISTRIBUTION WIDTH 15.4 % (9.4-14.8)
[2019-06-30] MEDS ORDERED: SODIUM CHLORIDE FLUSH 10ML SYR IVF ONE (09:00)
[2019-06-30] MEDS ORDERED: SODIUM CHLORIDE 0.9% 1,000ML IVBOLUS ONE (09:00)
[2019-06-30] MEDS ORDERED: LORazepam 2 MG/ML, 1ML IVPush ONE (09:00)
[2019-06-30 09:10] LABS: ALANINE AMINOTRANSFERASE 177 U/L (12-78); ALBUMIN 3.7 g/dL (3.4-5.0); ANION GAP 13 mmol/L (5-15); CHLORIDE 103 mmol/L (98-107); CREATININE 0.71 mg/dL (0.7-1.3)
[2019-06-30 09:12] LABS: ALKALINE PHOSPHATASE 88 U/L (45-117); BILIRUBIN,TOTAL 0.9 mg/dL (0.2-1.0); TOTAL PROTEIN 8.3 g/dL (6.4-8.2)
[2019-06-30 11:45] VITALS: BP 137/77
== END 2019-06-30 11:48 | disposition home or self-care (01) ==
LOC: ED 10:34
DX: F10.239 Alcohol dependence with withdrawal, unspecified (principal); R45.1 Restlessness and agitation; R51 Headache; I10 Essential (primary) hypertension; Y90.9 Presence of alcohol in blood, level not specified
CPT/HCPCS: 36415; 70450; 71045; 80053; 83690; 85025; 93005; 96361; 96374; 99284; J2060; J7030

== ENCOUNTER 2020-02-04 21:44 | Inpatient (IN) | payer MEDICAID ==
[~2020-02-04] VITALS: Ht 167.6 cm; Wt 94.0 kg
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
[2020-02-04 22:33] LABS: BASOPHILS % (AUTO) 3 % (0-1); EOSINOPHILS # (AUTO) 0.19 x10^3/uL (0-0.4); EOSINOPHILS % (AUTO) 3 % (1-7); LYMPHOCYTES # (AUTO) 2.49 x10^3/uL (1-3.4); LYMPHOCYTES % (AUTO) 38 % (22-44); MD NO; MEAN CORPUSCULAR HEMOGLOBIN 27.9 pg (27.5-34.5); MEAN CORPUSCULAR HGB CONC 32.4 g/dL (33.2-36.2); MEAN CORPUSCULAR VOLUME 86.3 fL (81-97); MEAN PLATELET VOLUME 6.2 fL (7.4-10.4); MONOCYTES # (AUTO) 0.54 x10^3/uL (0.2-0.8); MONOCYTES % (AUTO) 8 % (2-9); NEUTROPHILS # (AUTO) 3.11 x10^3/uL (1.8-6.8); NEUTROPHILS % (AUTO) 48 % (42-75); PLATELET COUNT 351 x10^3/uL (130-400); RED BLOOD COUNT 3.67 x10^6/uL (4.38-5.82); RED CELL DISTRIBUTION WIDTH 15.5 % (9.4-14.8)
[2020-02-04 22:42] LABS: ALBUMIN 3.2 g/dL (3.4-5.0); ANION GAP 8 mmol/L (5-15); CALCIUM 8.2 mg/dL (8.5-10.1); CHLORIDE 108 mmol/L (98-107); CREATININE 0.64 mg/dL (0.7-1.3)
[2020-02-04] MEDS ORDERED: ONDANSETRON 2MG/ML, 2ML ONE (22:50)
[2020-02-04] MEDS ORDERED: ONDANSETRON 2MG/ML, 2ML IVPush ONE (23:00)
--- NOTE | 2020-02-05 00:45 | NUR ---
Harjinder RN: Dr. Soler at bedside for patient evaluation.
[2020-02-05] MEDS ORDERED: NS + 20MEQ KCL 1,000 ML IV SCH (01:39)
[2020-02-05] MEDS ORDERED: LORazepam 1MG TABLET PO PRN ×4 (02:00)
[2020-02-05] MEDS ORDERED: morphine SULFATE 10 MG/ML, 1ML IVPush PRN (02:00)
[2020-02-05] MEDS ORDERED: LORazepam 2 MG/ML, 1ML IV PRN ×5 (02:00)
[2020-02-05] MEDS ORDERED: POTASSIUM CHLORIDE 20 MEQ, MAGNESIUM SULFATE 1 GM, THIAMINE 200 MG, FOLIC ACID 1 MG, MV... IV SCH (02:00)
[2020-02-05] MEDS ORDERED: ACETAMINOPHEN 325 MG TABLET PO PRN (02:00)
[2020-02-05] MEDS ORDERED: LORazepam 2 MG/ML, 1ML ONE (02:11)
--- NOTE | 2020-02-05 02:13 | NUR ---
CIWA 8. 1 mg ativan IV given per order. See eMAR for additional details
--- NOTE | 2020-02-05 02:14 | NUR ---
Report given to Ciarra PARIS
[2020-02-05 03:00] VITALS: BP 124/79
[2020-02-05] MEDS: OMEPRAZOLE 20 MG CAPSULE.DR PO SCH (05:44)
[2020-02-05] MEDS: CARVEDILOL 12.5 MG TABLET PO SCH ×2 (05:44→18:00)
[2020-02-05] MEDS: HYDROcodone/APAP 5/325 TABLET PO PRN (06:45)
[2020-02-05 08:26] VITALS: BP 122/74
[2020-02-05] MEDS: SENNA/DOCUSATE TABLET PO SCH (08:42)
[2020-02-05] MEDS: FOLIC ACID 1 MG TABLET PO SCH (08:42)
[2020-02-05] MEDS: LEVETIRACETAM 500 MG TABLET PO SCH ×2 (08:42→21:04)
[2020-02-05] MEDS: AMLODIPINE 5 MG TABLET PO SCH ×2 (08:42→21:04)
[2020-02-05] MEDS: LISINOPRIL 20 MG TABLET PO SCH (08:42)
[2020-02-05] MEDS: THIAMINE 100MG TABLET PO SCH (08:42)
[2020-02-05 12:02] LABS: ANION GAP 9 mmol/L (5-15); CALCIUM 8.3 mg/dL (8.5-10.1); CHLORIDE 109 mmol/L (98-107); CREATININE 0.47 mg/dL (0.7-1.3)
[2020-02-05 12:10] LABS: BASOPHILS # (AUTO) 0.15 x10^3/uL (0-0.1); BASOPHILS % (AUTO) 2 % (0-1); EOSINOPHILS # (AUTO) 0.05 x10^3/uL (0-0.4); EOSINOPHILS % (AUTO) 1 % (1-7); LYMPHOCYTES # (AUTO) 1.15 x10^3/uL (1-3.4); LYMPHOCYTES % (AUTO) 12 % (22-44); MD NO; MEAN CORPUSCULAR HGB CONC 32.4 g/dL (33.2-36.2); MEAN CORPUSCULAR VOLUME 86.2 fL (81-97); MEAN PLATELET VOLUME 6.8 fL (7.4-10.4); MONOCYTES % (AUTO) 7 % (2-9); NEUTROPHILS # (AUTO) 7.37 x10^3/uL (1.8-6.8); NEUTROPHILS % (AUTO) 78 % (42-75); PLATELET COUNT 335 x10^3/uL (130-400); RED BLOOD COUNT 3.63 x10^6/uL (4.38-5.82); RED CELL DISTRIBUTION WIDTH 15.7 % (9.4-14.8)
[2020-02-05] MEDS ORDERED: BALANCED SALT OPHTH IRRIG SOLN 18ML ONE (13:29)
[2020-02-05] MEDS ORDERED: LIDOCAINE 1%-EPI 1:100K, 20ML ONE (13:29)
[2020-02-05] MEDS ORDERED: CHLORHEXIDINE 15 ML UDC ONE (13:32)
[2020-02-05] MEDS ORDERED: MIDAZOLAM 1 MG/ML, 2ML ONE (15:13)
[2020-02-05] MEDS ORDERED: FENTANYL PF 250 MCG/5ML ONE (15:14)
[2020-02-05] MEDS ORDERED: COCAINE TOPICAL SOLN 4%, 4ML ONE (16:12)
[2020-02-05] MEDS ORDERED: NEOSTIGMINE 1 MG/ML, 10ML ONE (17:01)
[2020-02-05] MEDS ORDERED: PROPOFOL 10 MG/ML, 20ML ONE (17:01)
[2020-02-05] MEDS ORDERED: MEPERIDINE/PF 100 MG/ML ONE (17:01)
[2020-02-05] MEDS ORDERED: ONDANSETRON 2MG/ML, 2ML ONE (17:01)
[2020-02-05] MEDS ORDERED: GLYCOPYRROLATE 0.2MG/1ML, 5ML ONE (17:01)
[2020-02-05] MEDS ORDERED: CEFAZOLIN 1,000 MG ONE (17:01)
[2020-02-05] MEDS ORDERED: ROCURONIUM 10MG/ML,5ML ONE (17:01)
[2020-02-05] MEDS ORDERED: DEXAMETHASONE 4 MG/ML, 1ML ONE (17:01)
[2020-02-05] MEDS ORDERED: SUCCINYLCHOLINE 20 MG/ML, 10ML ONE (17:01)
[2020-02-05 18:56] VITALS: BP 138/83
[2020-02-05 19:40] VITALS: BP 136/88
[2020-02-06 01:15] VITALS: BP 129/88
[2020-02-06 03:16] VITALS: BP 121/75
[2020-02-06 03:39] VITALS: BP 123/84
[2020-02-06 04:14] LABS: ANION GAP 7 mmol/L (5-15); CALCIUM 8.6 mg/dL (8.5-10.1); CHLORIDE 104 mmol/L (98-107); CREATININE 0.55 mg/dL (0.7-1.3)
[2020-02-06 04:33] LABS: BASOPHILS # (AUTO) 0.03 x10^3/uL (0-0.1); BASOPHILS % (AUTO) 0 % (0-1); EOSINOPHILS # (AUTO) 0.06 x10^3/uL (0-0.4); EOSINOPHILS % (AUTO) 0 % (1-7); LYMPHOCYTES # (AUTO) 1.01 x10^3/uL (1-3.4); LYMPHOCYTES % (AUTO) 7 % (22-44); MD NO; MEAN CORPUSCULAR HEMOGLOBIN 28.1 pg (27.5-34.5); MEAN CORPUSCULAR HGB CONC 32.8 g/dL (33.2-36.2); MEAN CORPUSCULAR VOLUME 85.5 fL (81-97); MEAN PLATELET VOLUME 7.1 fL (7.4-10.4); MONOCYTES # (AUTO) 0.91 x10^3/uL (0.2-0.8); MONOCYTES % (AUTO) 6 % (2-9); NEUTROPHILS # (AUTO) 12.55 x10^3/uL (1.8-6.8); NEUTROPHILS % (AUTO) 86 % (42-75); PLATELET COUNT 305 x10^3/uL (130-400); RED BLOOD COUNT 3.69 x10^6/uL (4.38-5.82); RED CELL DISTRIBUTION WIDTH 15.5 % (9.4-14.8)
[2020-02-06] MEDS: CARVEDILOL 12.5 MG TABLET PO SCH ×2 (05:41→18:19)
[2020-02-06] MEDS: OMEPRAZOLE 20 MG CAPSULE.DR PO SCH (05:41)
[2020-02-06 07:34] VITALS: BP 103/73
[2020-02-06] MEDS: AMLODIPINE 5 MG TABLET PO SCH ×2 (09:36→21:35)
[2020-02-06] MEDS: THIAMINE 100MG TABLET PO SCH (09:36)
[2020-02-06] MEDS: FOLIC ACID 1 MG TABLET PO SCH (09:36)
[2020-02-06] MEDS: LORazepam 0.5MG TABLET PO PRN ×2 (09:36→22:45)
[2020-02-06] MEDS: LEVETIRACETAM 500 MG TABLET PO SCH ×2 (09:36→21:35)
[2020-02-06] MEDS: LISINOPRIL 20 MG TABLET PO SCH (09:36)
[2020-02-06] MEDS: SENNA/DOCUSATE TABLET PO SCH (09:36)
[2020-02-06 12:56] VITALS: BP 123/72
[2020-02-06] MEDS: HYDROcodone/APAP 5/325 TABLET PO PRN ×3 (14:23→22:45)
[2020-02-06 20:25] VITALS: BP 116/77
[2020-02-07 03:22] VITALS: BP 122/76
[2020-02-07 05:51] LABS: BASOPHILS # (AUTO) 0.16 x10^3/uL (0-0.1); BASOPHILS % (AUTO) 2 % (0-1); EOSINOPHILS # (AUTO) 0.08 x10^3/uL (0-0.4); EOSINOPHILS % (AUTO) 1 % (1-7); LYMPHOCYTES # (AUTO) 1.86 x10^3/uL (1-3.4); LYMPHOCYTES % (AUTO) 19 % (22-44); MD NO; MEAN CORPUSCULAR HEMOGLOBIN 27.9 pg (27.5-34.5); MEAN CORPUSCULAR HGB CONC 32.3 g/dL (33.2-36.2); MEAN CORPUSCULAR VOLUME 86.3 fL (81-97); MEAN PLATELET VOLUME 7.3 fL (7.4-10.4); MONOCYTES # (AUTO) 0.89 x10^3/uL (0.2-0.8); MONOCYTES % (AUTO) 9 % (2-9); NEUTROPHILS # (AUTO) 7.02 x10^3/uL (1.8-6.8); NEUTROPHILS % (AUTO) 70 % (42-75); PLATELET COUNT 290 x10^3/uL (130-400); RED BLOOD COUNT 3.51 x10^6/uL (4.38-5.82); RED CELL DISTRIBUTION WIDTH 15.6 % (9.4-14.8)
[2020-02-07 05:59] LABS: ANION GAP 6 mmol/L (5-15); CALCIUM 8.7 mg/dL (8.5-10.1); CHLORIDE 106 mmol/L (98-107); CREATININE 0.49 mg/dL (0.7-1.3)
[2020-02-07] MEDS: OMEPRAZOLE 20 MG CAPSULE.DR PO SCH (06:09)
[2020-02-07] MEDS: CARVEDILOL 12.5 MG TABLET PO SCH (06:09)
[2020-02-07] MEDS: HYDROcodone/APAP 5/325 TABLET PO PRN ×2 (06:10→10:35)
[2020-02-07 07:35] VITALS: BP 110/72
[2020-02-07] MEDS: LEVETIRACETAM 500 MG TABLET PO SCH (07:48)
[2020-02-07] MEDS: AMLODIPINE 5 MG TABLET PO SCH (07:48)
[2020-02-07] MEDS: FOLIC ACID 1 MG TABLET PO SCH (07:48)
[2020-02-07] MEDS: LISINOPRIL 20 MG TABLET PO SCH (07:48)
[2020-02-07] MEDS: THIAMINE 100MG TABLET PO SCH (07:49)
[2020-02-07] MEDS: SENNA/DOCUSATE TABLET PO SCH (07:50)
[2020-02-07] MEDS ORDERED: AMOXICILLIN/CLAV 875-125MG TABLET PO SCH (09:00)
[2020-02-07] MEDS ORDERED: AMOX1TAB12 PO (10:22)
[2020-02-07] MEDS ORDERED: HYDR-3237 PO (10:22)
== END 2020-02-07 11:49 | disposition home or self-care (01) | DRG 131 ==
LOC: ED 22:47 → EDIP 02-05 01:46 → 4NE 02-05 02:17 → DCLOUNGE 02-07 11:24
PROVIDERS: ADMIT Family Medicine; ATTEND Family Medicine
PROC: 0NSN04Z Reposition Left Zygomatic Bone with Internal Fixation Device, Open Approach (ICD-10-PCS; principal; 2020-02-05 14:30)
DX: S02.40FA Zygomatic fracture, left side, initial encounter for closed fracture (principal); S02.32XA Fracture of orbital floor, left side, initial encounter for closed fracture; F10.239 Alcohol dependence with withdrawal, unspecified; I10 Essential (primary) hypertension; S02.2XXA Fracture of nasal bones, initial encounter for closed fracture; S02.40DA Maxillary fracture, left side, initial encounter for closed fracture; E87.6 Hypokalemia; D64.9 Anemia, unspecified; F10.220 Alcohol dependence with intoxication, uncomplicated; G40.909 Epilepsy, unspecified, not intractable, without status epilepticus; Z20.828 Contact with and (suspected) exposure to other viral communicable diseases; Y08.89XA Assault by other specified means, initial encounter; Y93.89 Activity, other specified; Y92.89 Other specified places as the place of occurrence of the external cause; Y99.8 Other external cause status
CPT/HCPCS: 36415; 70450; 70486; 80048; 80307; 82040; 83735; 85025; 87635; G0378; J0690; J1100; J2250; J2405; J2704; J2710; J3010; J3411; J3475; J3480; J3490; J0330; J2060; J2175; J2270; J7030

== ENCOUNTER 2020-02-24 14:07 | Emergency (ER) | payer MEDICAID ==
[~2020-02-24] VITALS: Ht 167.6 cm; Wt 91.6 kg
[~2020-02-24 14:07] MED LIST changes: +HYDR-3237 PO
--- NOTE | 2020-02-24 15:25 | NUR ---
MANAGER SCHEDULING: PT TO ROOM FROM LOBBY
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
--- NOTE | 2020-02-24 16:45 | NUR ---
PT TO CT
--- NOTE | 2020-02-24 17:26 | NUR ---
received records from [facility].
[2020-02-24 18:18] VITALS: BP 145/85
--- NOTE | 2020-02-24 18:19 | NUR ---
PT AMBULATED TO BATHROOM. LABS PENDING
[2020-02-24 18:26] LABS: CHLORIDE 106 mmol/L (98-107)
[2020-02-24 18:27] LABS: BASOPHILS # (AUTO) 0.12 x10^3/uL (0-0.1); BASOPHILS % (AUTO) 2 % (0-1); EOSINOPHILS # (AUTO) 0.22 x10^3/uL (0-0.4); EOSINOPHILS % (AUTO) 3 % (1-7); LYMPHOCYTES % (AUTO) 23 % (22-44); MD NO; MEAN CORPUSCULAR HEMOGLOBIN 25.8 pg (27.5-34.5); MEAN CORPUSCULAR HGB CONC 31.4 g/dL (33.2-36.2); MEAN PLATELET VOLUME 6.8 fL (7.4-10.4); MONOCYTES # (AUTO) 0.54 x10^3/uL (0.2-0.8); MONOCYTES % (AUTO) 7 % (2-9); NEUTROPHILS # (AUTO) 5.14 x10^3/uL (1.8-6.8); NEUTROPHILS % (AUTO) 66 % (42-75); PLATELET COUNT 520 x10^3/uL (130-400); RED BLOOD COUNT 3.76 x10^6/uL (4.38-5.82); RED CELL DISTRIBUTION WIDTH 17.1 % (9.4-14.8)
[2020-02-24 18:37] LABS: ANION GAP 8 mmol/L (5-15); CALCIUM 8.7 mg/dL (8.5-10.1)
--- NOTE | 2020-02-24 18:51 | NUR ---
Patient/Caregiver given discharge instructions and they have confirmed that they understand the instructions. Patient ambulatory with steady gait.
== END 2020-02-24 19:19 | disposition home or self-care (01) ==
LOC: ED 17:32
DX: G44.329 Chronic post-traumatic headache, not intractable (principal); D53.9 Nutritional anemia, unspecified; R42 Dizziness and giddiness; I10 Essential (primary) hypertension; R53.1 Weakness; Z76.0 Encounter for issue of repeat prescription
CPT/HCPCS: 36415; 70450; 80048; 85025; 99284

== ENCOUNTER 2021-02-16 04:52 | Emergency (ER) | payer MEDICAID ==
[~2021-02-16] VITALS: Ht 167.6 cm; Wt 82.3 kg
[~2021-02-16 04:52] MED LIST changes: -FOLI-17 PO; +FOLI1TAB32 PO
--- NOTE | 2021-02-16 05:09 | NUR ---
[facility] REPORTS PATIENT DRINK 6-8 MINI BOTTLES OF LIQUOR/DAY, LAST DRINK APPROX 02/14/21 IN MORNING. PATIENT REPORTS VOMITING 3-4 TIMES 02/15/21, CONTINUES TO HAVE NAUSEA, VISIBLE TREMORS PRESENT. PATIENT REPORTS SEIZURES WITH LAST WITHDRAWL APPROX 6 MONTHS AGO.
[2021-02-16] MEDS ORDERED: THIAMINE 100 MG in SODIUM CHLORIDE 0.9% 50 ML IVPB ONE (05:30)
[2021-02-16] MEDS ORDERED: ONDANSETRON 2MG/ML, 2ML IVPush ONE (05:30)
[2021-02-16] MEDS ORDERED: SODIUM CHLORIDE 0.9% 1,000ML IVBOLUS ONE (05:30)
[2021-02-16] MEDS ORDERED: LORazepam 2 MG/ML, 1ML IVPush PRN (05:30)
[2021-02-16 05:41] LABS: BASOPHILS % (AUTO) 1 % (0-1); EOSINOPHILS % (AUTO) 0 % (1-7); LYMPHOCYTES % (AUTO) 11 % (22-44); MEAN CORPUSCULAR HEMOGLOBIN 30.8 pg (27.5-34.5); MEAN CORPUSCULAR HGB CONC 33.9 g/dL (33.2-36.2); MEAN PLATELET VOLUME 7.5 fL (7.4-10.4); MONOCYTES % (AUTO) 12 % (2-9); NEUTROPHILS % (AUTO) 76 % (42-75); PLATELET COUNT 178 x10^3/uL (130-400); RED BLOOD COUNT 5.05 x10^6/uL (4.38-5.82); RED CELL DISTRIBUTION WIDTH 16.1 % (9.4-14.8)
[2021-02-16 05:52] LABS: ALANINE AMINOTRANSFERASE 63 U/L (12-78); ALBUMIN 3.3 g/dL (3.4-5.0); ANION GAP 12 mmol/L (5-15); CALCIUM 8.8 mg/dL (8.5-10.1); CHLORIDE 102 mmol/L (98-107); CREATININE 0.72 mg/dL (0.7-1.3)
[2021-02-16 05:55] LABS: ALKALINE PHOSPHATASE 99 U/L (45-117); BILIRUBIN,TOTAL 1.4 mg/dL (0.2-1.0); TOTAL PROTEIN 8.9 g/dL (6.4-8.2)
[2021-02-16] MEDS ORDERED: ONDANSETRON 2MG/ML, 2ML ONE (06:01)
[2021-02-16] MEDS ORDERED: LORazepam 2 MG/ML, 1ML ONE (06:18)
[2021-02-16] MEDS ORDERED: POTASSIUM CHLORIDE 20 MEQ PACKET PO ONE (06:30)
--- NOTE | 2021-02-16 07:38 | NUR ---
PT REQUESTING WATER. PT DENIES N/V OR ABD PAIN. PT VSS ASSESSED. RAILS UP. CALL LIGHT WITHIN REACH. NAD. PT PROVIDED WATER.
[2021-02-16] MEDS ORDERED: POTASSIUM CHLORIDE 20 MEQ PACKET ONE (09:22)
[2021-02-16 10:56] VITALS: BP 135/90
--- NOTE | 2021-02-16 10:57 | NUR ---
PT REC'VD DISCHARGE INSTRUCTIONS AND EDUCATION. PT HAD NO FURTHER QUESTIONS. PT AMBULATED TO DC AREA, STEADY GAIT.
== END 2021-02-16 11:00 | disposition home or self-care (01) ==
LOC: ED 07:26
DX: F10.139 Alcohol abuse with withdrawal, unspecified (principal); R45.1 Restlessness and agitation; R45.4 Irritability and anger; R00.0 Tachycardia, unspecified; Y90.0 Blood alcohol level of less than 20 mg/100 ml
CPT/HCPCS: 36415; 80053; 80320; 83690; 85025; 96365; 96375; 99284; J2060; J2405; J3411; J7030; G0480